=== PATIENT | female | born 1940 | race Caucasian/White ===

== ENCOUNTER 2020-02-14 19:15 | Emergency (ER) | payer OTHER, SELFPAY ==
[2020-02-14 19:29] VITALS: BP 167/93; PULSE 85; RESP 20; TEMP 37.6; O2SAT 100
--- NOTE | 2020-02-14 19:30 | ED.GENADULT ---
HPI - General Adult General Chief complaint: Eye Problems Stated complaint: eye problems Time Seen by Provider: 02/14/20 19:31 Source: patient and RN notes reviewed Mode of arrival: ambulatory Limitations: no limitations History of Present Illness HPI narrative: 79-year-old female presents with complains of burning, eye redness, and sensation of foreign body in right eye for 1 day. Misti says she believes she may have gotten eyelash glue into eye. Applied unknown home eye drops into eye without relief. Mild redness, no drainage. Symptoms worsening throughout the last hour. Exacerbating factors consist of opening eye. Relieving factors is closing eyes. Denies blurred vision, double vision, or pain of eye with movement. Denies fever or chills. Denies fever, chills, headaches, weakness, fatigue, myalgia, or facial swelling. Denies chest pain or dyspnea. Denies cough, rhinorrhea, congestion, sore throat, nausea, vomiting, abdominal pain, and diarrhea. Tolerating po intake well. Denies recent traveling. Denies concern for COVID-19 or exposures been home since [id number] order except for essential household needs and return home. Some parts of this dictation were generated by voice recognition software and may contain typographical and/or grammatical inaccuracies. Severity scale (1-10): 9 Related Data Home Medications Medication Instructions Recorded Confirmed dicyclomine mg 02/14/20 estradiol VAGINAL 02/14/20 lisinopril-hydrochlorothiazide tablet 02/14/20 metoprolol succinate PO 02/14/20 simvastatin mg 02/14/20 Allergies Allergy/AdvReac Type Severity Reaction Status Date / Time No Known Allergies Allergy Verified 02/14/20 19:28 Review of Systems Review of Systems: Narrative: CONSTITUTIONAL: Denies fever, chills, sweats. EYES: Denies visual changes. Complains of RT burning, eye redness, and foreign body sensation. Denies discharge. ENT: Denies rhinorrhea, congestion, sore throat, otalgia. CARDIOVASCULAR: Denies chest pain, palpitations, edema. RESPIRATORY: Denies dyspnea, wheezing, cough. GASTROINTESTINAL: Denies abdominal pain, nausea, vomiting, diarrhea. GENITOURINARY: Denies dysuria, hematuria, abnormal discharge. SKIN: Denies rash or itching. MUSCULOSKELETAL: Denies acute back pain, joint pain, or myalgia. NEUROLOGIC: Denies numbness or focal weakness. PSYCHIATRIC: Denies anxiety or depression. All systems reviewed & are unremarkable except as noted in HPI and below. [facility] Past Medical History Medical History (Updated 02/15/20 @ 00:00 by Mami Simon) Hypercholesteremia Hypertension Surgical History Surgical History (Updated 02/14/20 @ 20:05 by GLORY Alvarado) History of eye surgery Family History Family History (Updated 02/14/20 @ 20:05 by GLORY Alvarado) Father Hypertension Heart disease Mother No problems noted. Social History Social History (Updated 02/14/20 @ 20:06 by GLORY Alvarado) Smoking status: Never smoker Second hand tobacco smoke exposure: Yes (None in over 20 years) Alcohol intake: former Alcohol use details: use to occassional Substance use: never Living arrangements: with family Occupation/Education: retired Gender identity (if verbalized by the patient): Female Comments At time of signature, I have reviewed and agree with nursing past medical, surgical, social, and family history. Please see nursing chart for further information. There is no relevant family history pertinent to the presenting complaint. Exam Narrative: Exam Narrative: GENERAL: This is a well-nourished, well-developed patient, in no apparent distress. HEAD: normocephalic, atraumatic. EYES: PERRL. Sclera clear/white to LT eye only. RT eye sclera mild [place] and clear with clear watery drainage, no swelling, no tenderness on palpation. Vision is grossly intact. RT eye with clear film at 6 & 7 o'clock of pupil not
== END 2020-02-14 19:59 | disposition home or self-care (01) ==
PROVIDERS: Emergency Provider Nurse Practitioner Family; PCP Family Medicine
DX: T15.91XA Foreign body on external eye, part unspecified, right eye, initial encounter (principal); E78.00 Pure hypercholesterolemia, unspecified; I10 Essential (primary) hypertension; X58.XXXA Exposure to other specified factors, initial encounter
CPT/HCPCS: 99213; A9270; G0463

== ENCOUNTER 2020-09-17 13:43 | Emergency (ER) | payer OTHER, SELFPAY ==
--- NOTE | ~2020-09-17 | XR_ITS ---
XR chest 2V 09/17/2020 14:10 Indication: Productive cough for 3 weeks Procedure: 2 view chest Comparison: No prior studies for comparison. Findings: There is left lower lobe pneumonia. Heart size normal. Small left effusion. Right lung agustín r. No edema or pneumothorax. Impression: 1: Left lower lobe pneumonia with small left pleural effusion. Reviewed, dictated and finalized at location A. E [employer]PER[employer] Impression: 1: Left lower lobe pneumonia with small left pleural effusion.
[2020-09-17 13:53] VITALS: BP 115/94; PULSE 129; RESP 16; TEMP 37.1; O2SAT 97
--- NOTE | 2020-09-17 13:53 | ED.URI ---
HPI - URI/Sore Throat General Chief Complaint: Upper Respiratory Infection Stated Complaint: cough Time Seen by Provider: 09/17/20 13:58 Source: patient History of Present Illness HPI Narrative: Patient is a 79-year-old female who presents the urgent care with complaints of a persistent cough. Patient states that the cough started approximately 3 weeks ago and has progressively gotten worse over the last 2 days. states that within the last hour the cough has been extremely persistent. Denies of any fever, nausea, vomiting, chest pain or shortness of breath. states that she has been taking [id number] cough medications and both syrup and pill form but he is unsure of what the medications are. It was noted in patient's chart that she was on ciprofloxacin approximately 1 month ago and she is unsure of what the treatment was for. Patient has had recent medication changes and states that she has been taking them appropriately. Patient has been states that she does have a history of pneumonia and does obtain her pneumonia vaccines. No other acute complaints. Patient's cough is very persistent and harsh and appears to be making the patient slightly anxious. Patient and aware of the plan of care. Some parts of this dictation were generated by voice recognition software and may contain typographical and/or grammatical inaccuracies. Related Data Home Medications Medication Instructions Recorded Confirmed dicyclomine 20 mg PO TID 09/17/20 09/17/20 losartan-hydrochlorothiazide 1 tablet PO DAILY 09/17/20 09/17/20 metoprolol succinate [Toprol XL] 100 mg PO DAILY 09/17/20 09/17/20 mirabegron [Myrbetriq] 25 mg PO DAILY 09/17/20 09/17/20 omeprazole [Prilosec] 40 mg PO DAILY 09/17/20 09/17/20 simvastatin 10 mg PO DAILY 09/17/20 09/17/20 Allergies Allergy/AdvReac Type Severity Reaction Status Date / Time No Known Allergies Allergy Verified 02/23/20 12:10 Review of Systems Review of Systems: Narrative: CONSTITUTIONAL: Denies fever, chills, or sweats. EYES: Denies visual changes, redness, or discharge. ENT: Denies rhinorrhea, congestion, sore throat, or otalgia. CARDIOVASCULAR: Denies chest pain, palpitations, or edema. RESPIRATORY: Reports a persistent cough without dyspnea GASTROINTESTINAL: Denies abdominal pain, nausea, vomiting, or diarrhea. GENITOURINARY: Denies dysuria or hematuria. SKIN: Denies rash or itching. MUSCULOSKELETAL: Denies back pain, joint pain, or myalgia. NEUROLOGIC: Denies headache, numbness, or weakness. All other systems reviewed are negative, except as documented in HPI. [facility] Past Medical History Medical History (Updated 09/17/20 @ 14:28 by GLORY William) Hypercholesteremia Hypertension Surgical History Surgical History (System 02/23/20 @ 12:10 by Glendy Hollis) History of eye surgery Family History Family History (System 02/23/20 @ 12:10 by Glendy Hollis) Father Hypertension Heart disease Mother No problems noted. Social History Social History (System 02/23/20 @ 12:10 by Glendy Hollis) Smoking status: Never smoker Second hand tobacco smoke exposure: Yes (None in over 20 years) Alcohol intake: former Substance use: never Gender identity (if verbalized by the patient): Female Comments At the time of my signature, I reviewed and agree with the nursing past medical, surgical, social, and family history. There is no relevant family history pertinent to the patient complaint. Exam Narrative: Exam Narrative: GENERAL: This is a well-nourished, well-developed patient, in no apparent distress. HEAD: normocephalic, atraumatic. EYES: PERRL. Sclera clear/white. Vision is grossly intact. EARS: External ears normal NOSE: External nose normal with no obvious nasal discharge, nares without redness, clear rhinorrhea. THROAT: Mucous membranes moist, posterior pharynx clear. Moderate postnasal drainage NE
--- NOTE | 2020-09-17 13:57 | PC.NURSE ---
Pt went straight to Xray from triage.
--- NOTE | 2020-09-17 14:32 | PC.NURSE ---
1410: In middle of exam pt decided on her own she was going to stand up and walk out of the room, when asked where she was going she stated to get her . Would not return even when asked.
== END 2020-09-17 14:31 | disposition home or self-care (01) ==
PROVIDERS: Emergency Provider Nurse Practitioner Family
DX: J18.9 Pneumonia, unspecified organism (principal); E78.00 Pure hypercholesterolemia, unspecified; I10 Essential (primary) hypertension
CPT/HCPCS: 71046; 99213; G0463